=== PATIENT | male | born 1970 | race Caucasian/White ===

== ENCOUNTER → 2018-06-21 | Outpatient (CLI) | payer OTHER ==
[~2018-06-21] MED LIST: ALLO-119 PO; AUG500 PO; CETI1TAB75 PO; DICL-195 PO; NAPR220C12 PO; OXYC-865 PO; PRE20 PO; ULT PO
--- NOTE | 2018-06-21 11:43 | RADIOLOGY IMAGING REPORT ---
FACILITY: [facility] - [place], [place] PATIENT NAME: Anmol Mittal : 1970 MR: [id number] V: [id number] EXAM DATE: ORDERING PHYSICIAN: NIRMAL COLE TECHNOLOGIST: Location: [facility] Patient: Anmol Mittal : 1970 Visit/Account:[id number] Date of Sevice: 06/21/2018 US VENOUS LOWER EXT LT HISTORY: Extremity pain and swelling. COMPARISON: None. FINDINGS: Grayscale, duplex and color Doppler interrogation of the left lower extremity deep veins from common femoral vein to proximal calf was completed. The greater saphenous vein in the proximal thigh was mil luated using similar technique. Common femoral vein - Negative. Femoral vein - Negative. Deep femoral vein - Negative. Popliteal vein - Negative. Visualized deep calf veins - Negative. Popliteal fossa: 2.9 x 2.9 x 6.4 cm Lagunas's cyst. Greater saphenous vein in the proximal thigh: Negative. Additional findings: Fluid within the suprapatellar space, likely joint fluid with internal septation s and synovial thickening, measuring at least 2.0 x 6.8 x 9.8 cm. IMPRESSION: 1. Negative left lower extremity ultrasound for venous thrombus. 2. 2.9 x 2.9 x 6.4 cm Lagunas's cyst. 3. At least moderate volume complex and/or chronic appearing joint fluid within the suprapatellar spa ce, measuring at least 2.0 x 6.8 x 9.8 cm. Report Dictated By: Bassam Gurrola MD at 06/21/2018 11:33 AM Report E-Signed By: Bassam Gurrola MD at 06/21/2018 11:38 AM WSN:[id number]
== END ==
LOC: US 10:04
PROVIDERS: ATTEND Physician Assistant
DX: M71.22 Synovial cyst of popliteal space [Baker], left knee (principal); M25.462 Effusion, left knee; R60.9 Edema, unspecified

== ENCOUNTER → 2018-07-28 | Day surgery (SDC) | payer OTHER ==
[~2018-07-28] VITALS: Ht 177.8 cm; Wt 90.7 kg
[~2018-07-28] MED LIST changes: +LIDOCAINE/SOD BICARB 8.4% SYR ID ONE; +NORMOSOL R SOLN(*) 1000 ML BAG 1,000 ML IV PRN; +PROPOFOL EMUL(*) 10MG/ML 20 ML 20 ML ONE; +PROPOFOL EMUL(*) 10MG/ML 20 ML 40 ML ONE
[2018-07-28 09:31] VITALS: BP 125/93
[2018-07-28 11:44] VITALS: BP 103/67
--- NOTE | 2018-07-28 11:49 | NUR ---
1144 SBAR REPORT WAS RECEIVED FROM DR. DICK AND ELKE MENDOZA RN. PATIENT IS BREATHING SPONTANEOUSLY AT A MODERATE RATE AND DEPTH. LUNGS ARE CLEAR. HE IS ON 3 LITERS HIGH FLOW NASAL CANNULA. BOWEL SOUNDS ARE HYPERACTIVE. HE IS SLEEPING AT THIS TIME. IS IN THE ROOM WITH PATIENT. UNABLE TO ASSESS PAIN OR NAUSEA. SEE ADMISSION ASSESSMENT.
[2018-07-28 12:00] VITALS: BP 100/72
--- NOTE | 2018-07-28 12:12 | NUR ---
1207 PATIENT WOKE UP. HE DENIES ANY PAIN OR NAUSEA. 1210 PATIENT BEGAN DRINKING WATER AND EATING CHOCOLATE. HE IS TOLERATING THIS WELL
[2018-07-28 12:26] VITALS: BP 109/77
[2018-07-28 12:27] VITALS: BP 109/82
== END ==
LOC: OR 02:04
PROVIDERS: ATTEND Family Medicine
DX: Z12.11 Encounter for screening for malignant neoplasm of colon (principal)
CPT/HCPCS: 00812; 45378; J2704